=== PATIENT | male | born 2000 | race Two or more races ===

== ENCOUNTER 2019-03-21 15:22 | Emergency (ER) | payer OTHER ==
[2019-03-21 15:50] VITALS: BP 97/47
[2019-03-21] MEDS ORDERED: Albuterol/Ipratropium NEB.SOL* Albuterol 2.5 MG/Ipratropium 0.5 MG 3 ML INH ONE (16:09)
--- NOTE | 2019-03-21 16:14 | UC ---
Respiratory Complaint HPI - HPI Summary HPI Summary: C/O CHEST HURTING SINCE ~1300 YESTERDAY. STATES PAIN IS CONSTANT, WORSE WITH DEEP BREATH. ALSO C/O SORE THROAT AND LEFT EAR PAIN. - History of Current Complaint Chief Complaint: UCRespiratory Stated Complaint: EAR PAIN, THROAT PAIN, CHEST PAIN Time Seen by Provider: 03/21/19 15:43 Hx Obtained From: Patient Onset/Duration: Sudden Onset, Lasting Days Timing: Constant Severity Initially: Moderate Severity Currently: Moderate Pain Intensity: 5 Character: Cough: Nonproductive Aggravating Factors: Exertion, Deep Breaths Alleviating Factors: Nothing Associated Signs And Symptoms: Positive: Wheezing - Allergies/Home Medications Allergies/Adverse Reactions: Allergies Allergy/AdvReac Type Severity Reaction Status Date / Time No Known Allergies Allergy Verified 03/21/19 15:49 PMH/Surg Hx/FS Hx/Imm Hx Previously Healthy: Yes - Surgical History Surgical History: None - Family History Known Family History: Positive: Hypertension - Social History Alcohol Use: Occasionally Substance Use Type: None Smoking Status (MU): Never Smoked Tobacco Review of Systems All Other Systems Reviewed And Are Negative: Yes Constitutional: Positive: Fatigue ENT: Positive: Sore Throat, Sinus Congestion Respiratory: Positive: Shortness Of Breath, Cough Physical Exam Triage Information Reviewed: Yes Appearance: Well-Appearing, Well-Nourished, Pain Distress Vital Signs: Initial Vital Signs Temp 98.6 F 03/21/19 15:46 Pulse 87 03/21/19 15:46 Resp 16 03/21/19 15:46 BP 97/47 03/21/19 15:46 Pulse Ox 99 03/21/19 15:46 Vital Signs Reviewed: Yes Eye Exam: Normal ENT: Positive: Pharyngeal erythema - with PND, Nasal congestion Neck exam: Normal Respiratory: Positive: Chest non-tender, No respiratory distress, Decreased breath sounds, Wheezing, Inspiration Cardiovascular Exam: Normal Cardiovascular: Positive: RRR, No Murmur, Pulses Normal Abdominal Exam: Normal Abdomen Description: Positive: Nontender, No Organomegaly, Soft Bowel Sounds: Positive: Present Musculoskeletal Exam: Normal Neurological Exam: Normal Psychological Exam: Normal Skin Exam: Normal Respiratory Course/Dx - Course Course Of Treatment: hx obtained, exam performed ,meds reviewed, duo neb given, rapid strep obtained and is negative, disccuess how to manage symtpoms and when to follow up as needed. - Differential Dx/Diagnosis Differential Diagnosis/HQI/PQRI: Asthma, Bronchitis, Sinusitis Provider Diagnosis: Acute rhinosinusitis, Shortness of breath on exertion Discharge ED - Sign-Out/Discharge Documenting (check all that apply): Patient Departure All imaging exams completed and their final reports reviewed: No Studies - Discharge Plan Condition: Stable Disposition: HOME Prescriptions: predniSONE [Prednisone 20 MG TAB] 40 mg PO DAILY #10 tablet Patient Education Materials: Rhinosinusitis (ED), Bronchospasm (ED) Referrals: [facility] Rony HODGE [Primary Care Provider] - Additional Instructions: 1. use the medication as prescribed. 2. Salt water gargles to help with the post nasal drip. 3. Increase fluid intake and get plenty of rest. 4. FOllow up with your Primary care provider if these syptoms continue with exertion. - Billing Disposition and Condition Condition: STABLE Disposition: Home
[2019-03-21] MEDS ORDERED: Albuterol HFA INHALER* 8 gm MDI INH ONE (16:54)
== END 2019-03-21 17:23 | disposition home or self-care (01) ==
LOC: UCEAST 15:22
DX: J01.90 Acute sinusitis, unspecified (principal); R06.02 Shortness of breath
CPT/HCPCS: 87651; 99202; A9270-GY; G0463